=== PATIENT | male | born 1990 | race Caucasian/White ===

== ENCOUNTER 2019-03-28 02:25 | Emergency (ER) | payer OTHER ==
[~2019-03-28] VITALS: Ht 172.7 cm; Wt 87.5 kg
[~2019-03-28 02:25] MED LIST: MOTRIN800 MG PO; NKHM; PROTONIX40 MG PO; ZOFRAN ODT4 MG SL
== END 2019-03-28 04:22 | disposition home or self-care (01) ==
LOC: ED 02:25
DX: J02.8 Acute pharyngitis due to other specified organisms (principal); B97.89 Other viral agents as the cause of diseases classified elsewhere; Z88.0 Allergy status to penicillin

== ENCOUNTER 2019-09-03 22:55 | Emergency (ER) | payer SELFPAY ==
[~2019-09-03] VITALS: Ht 182.8 cm; Wt 86.2 kg
== END 2019-09-03 23:53 | disposition home or self-care (01) ==
LOC: ED 22:55
DX: T23.201A Burn of second degree of right hand, unspecified site, initial encounter (principal); T31.0 Burns involving less than 10% of body surface; F17.200 Nicotine dependence, unspecified, uncomplicated; Z88.0 Allergy status to penicillin; X19.XXXA Contact with other heat and hot substances, initial encounter; Y93.89 Activity, other specified; Y92.89 Other specified places as the place of occurrence of the external cause; Y99.8 Other external cause status

== ENCOUNTER 2022-07-05 02:09 | Emergency (ER) | payer SELFPAY ==
[~2022-07-05] VITALS: Ht 177.8 cm; Wt 90.7 kg
== END 2022-07-05 02:39 | disposition home or self-care (01) ==
LOC: ED 02:09
DX: G90.A Postural orthostatic tachycardia syndrome [POTS] (principal); Z88.0 Allergy status to penicillin; Z98.890 Other specified postprocedural states